=== PATIENT | female | born 1995 | race Caucasian/White ===

== ENCOUNTER 2018-08-07 05:48 | Inpatient (IN) | payer MEDICAID ==
[2018-08-07] MEDS ORDERED: SUBLIMAZE IV PRN (07:14)
[2018-08-07] MEDS ORDERED: XYLOCAINE 2% INFILTRATI ONE (07:14)
[2018-08-07] MEDS ORDERED: BRETHINE SUB-Q PRN (07:14)
--- NOTE | 2018-08-07 07:25 | History and Physical Report ---
History of Present Illness Date of examination: 08/07/18 Date of admission: 08/07/18 05:58 Chief complaint: Leaking water History of present illness: 23 year old presents to L&D complaining of leaking water from vagina since 05:30 this morning. Patient denies vaginal bleeding. Patient reports contractions. Patient reports good movement. Patient received care at [facility]. records are available. LMP 10/26/17. EDC 08/02/18 (based on LMP and confirmed by 8 week US). has been uncomplicated. labs are as follows: O+, antibody screen negative, rubella immune, RPR nonreactive, HIV negative, hepatitis B surface antigen negative, chlamydia negative, gonorrhea negative, quad screen negative, diabetes screen 110, GBS negative, pap smear normal. 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 denies: smoking, alcohol abuse, IV drug use - Obstetrical History Expected Date of Delivery: 08/02/18 Actual Gestation: 40 Week(s) 5 Day(s) : 1 Para: 0 Hx # Term Pregnancies: 1 Number of Pregnancies: 0 Spontaneous Abortions: 0 Induced : 0 Number of Living Children: 0 Medications and Allergies Active Meds: Active Medications Ephedrine Sulfate (Ephedrine Sulfate) 10 mg IV Q2M PRN PRN Reason: Hypotension Fentanyl (Sublimaze) 100 mcg IV Q2H PRN PRN Reason: Labor Pain Lactated Ringer's (Lactated Ringers) 1,000 mls @ 125 mls/hr IV DIRECT VIC Oxytocin/Sodium Chloride (Pitocin/Ns 20 Unit/1000ml Drip) 20 units in 1,000 mls @ 125 mls/hr IV DIRECT VIC Oxytocin/Sodium Chloride (Pitocin/Ns 30 Unit/500ml) 30 units in 500 mls @ 0 mls/hr IV TITR VIC; Protocol Lidocaine (Xylocaine 2%) 20 ml INFILTRATI ONCE ONE Stop: 08/07/18 07:15 Terbutaline Sulfate (Brethine) 0.25 mg SUB-Q ONCE PRN PRN Reason: Hyperstimulation/Hypertonicity Review of Systems All systems: negative (contractions and leaking of water from vagina) - Physical Exam Abdomen: Positive: normal appearance, soft. Negative: distention, tenderness, guarding, rigidity Genitourinary (Female): Positive: normal external genitalia, normal perenium. Negative: perineal/vulvar lesions Vagina: Positive: other (meconium stained amniotic fluid noted at introitus) Uterus: Positive: enlarged (size=dates) Extremities: Positive: normal. Negative: tenderness, edema - Obstetrical FHR: category 1 Uterine Contraction Monitor Mode: External Cervical Dilatation: 4 Cervical Effacement Percentage: 90 station: -1 Uterine Contraction Pattern: Irregular Uterine Contraction Intensity: Mild Results All other labs normal. Assessment and Plan A: at 40 weeks, 5 days gestation. Spontaneous rupture of membranes, meconium stained fluid. Labor. GBS negative. P: Admit. Continuous EFM. Pitocin augmentation of labor. Discussed with patient risks and benefits of Pitocin augmentation of labor. Patient consented to Pitocin augmentation of labor.
[2018-08-07] MEDS ORDERED: PITOCin/NS 30 UNIT/500ML 30 UNITS/500 ML BAG IV SCH (08:00)
[2018-08-07] MEDS ORDERED: PITOCin/NS 20 UNIT/1000ML DRIP 20 UNITS/1,000 ML BAG IV SCH ×3 (08:00→21:00)
[2018-08-07] MEDS: LACTATED RINGERS 1,000 ML IV SCH ×2 (08:18→17:30)
[2018-08-07 10:23] LABS: Hematocrit 38.8 % (30.3-42.9); Hemoglobin 13.2 gm/dl (10.1-14.3); Mean Corpuscular HGB Conc 34 % (30-34); Mean Corpuscular Volume 87 fl (79-97); Platelet Count 178 K/mm3 (140-440); Red Blood Count 4.44 M/mm3 (3.65-5.03); Red Cell Distribution Width 14.1 % (13.2-15.2)
[2018-08-07 10:39] LABS: Alanine Aminotransferase 11 units/L (7-56); Albumin 3.5 g/dL (3.9-5); BUN/Creatinine Ratio 23; Blood Urea Nitrogen 14 mg/dL (7-17); Calcium 8.9 mg/dL (8.4-10.2); Hemolysis Index 2; Uric Acid 7.3 mg/dL (3.5-7.6)
--- NOTE | 2018-08-07 10:49 | Event Note ---
Date: 08/07/18 Patient requests epidural. SVE /0.
[2018-08-07] MEDS ORDERED: NARCAN 2 MG/2 ML IV PRN (11:53)
--- NOTE | 2018-08-07 11:56 | Anesthesia Consultation ---
Anesthesia Consult and Med Hx Date of service: 08/07/18 - Airway Anesthetic Teeth Evaluation: Good ROM Head & Neck: Adequate Mental/Hyoid Distance: Adequate Mallampati Class: Class II Intubation Access Assessment: Probably Good - Pulmonary Exam CTA: Yes - Cardiac Exam Cardiac Exam: RRR - Pre-Operative Health Status ASA Pre-Surgery Classification: ASA2 Proposed Anesthetic Plan: Epidural - Pulmonary Hx Smoking: No Hx Asthma: No Hx Respiratory Symptoms: No SOB: No COPD: No Home Oxygen Therapy: No Hx Pneumonia: No Hx Sleep Apnea: No - Cardiovascular System Hx Hypertension: No Hx Coronary Artery Disease: No Hx Heart Attack/AMI: No Hx Angina: No Hx Percutaneous Transluminal Coronary Angioplasty (PTCA): No Hx Cardia Arrhythmia: No Hx Pacemaker: No Hx Internal Defibrillator: No Hx Valvular Heart Disease: No Hx Heart Murmur: No Hx Peripheral Vascular Disease: No - Central Nervous System Hx Neuromuscular Disorder: No Hx Seizures: No CVA: No Hx Back Pain: No Hx Psychiatric Problems: No - Gastrointestinal Hx Ulcer: No Hx Gastroesophageal Reflux Disease: No - Endocrine Hx Renal Disease: No Hx End Stage Renal Disease: No Hx Cirrhosis: No Hx Liver Disease: No Hx Insulin Dependent Diabetes: No Hx Non-Insulin Dependent Diabetes: No Hx Thyroid Disease: No Hx Hypothyroidism: No Hx Hyperthyroidism: No - Hematic Hx Anemia: No Hx Sickle Cell Disease: No - Other Systems Hx Alcohol Use: No Hx Substance Use: No Hx Cancer: No Hx Obesity: No
[2018-08-07] MEDS ORDERED: fentaNYL-BUPIV 2 MCG/ML-0.125% 200 MCG/100 ML BAG EPIDURAL SCH (12:00)
[2018-08-07] MEDS ORDERED: AMPICILLIN/NS 2 GM/100 ML 2 GM/100 ML BAG IV ONE (18:00)
--- NOTE | 2018-08-07 18:10 | Event Note ---
Date: 08/07/18 SVE 6-7/100/-1. Category 1 heart rate tracing. Patient is receiving Pitocin for augmentation of labor. Patient has epidural and is comfortable. Ampicillin has been started for SROM greater than 12 hours ago.
[2018-08-07] MEDS ORDERED: TYLENOL PO ONE (19:00)
--- NOTE | 2018-08-07 19:04 | Event Note ---
Date: 08/07/18 Patient reports urge to push. Prolonged late heart rate deceleration noted; heart rate baseline now 170s and 180s. Temp. 99.0. Patient is already receiving Ampicillin. Gentamicin ordered also. SVE 7/100/-2. Patient positioned in lateral position. IV fluid bolus given. Oxygen per face mask at 10 LPM. Tylenol given PO. Called Dr. Pearson and informed him of all the above. Dr. Pearson states he will come and perform section. Discussed this plan with patient and informed her of need to expedite delivery due to tachycardia. Patient and family state they are in agreement with delivering by section.
[2018-08-07] MEDS ORDERED: BICITRA ONE (19:11)
[2018-08-07] MEDS ORDERED: PEPCID IV ONE ×2 (19:11→20:00)
[2018-08-07] MEDS ORDERED: REGLAN ONE (19:11)
[2018-08-07] MEDS ORDERED: GENTAMICIN 100 MG in NACL 0.9% 100 ML IV SCH (19:15)
[2018-08-07] MEDS ORDERED: NARCAN 0.4 MG/1 ML IV PRN ×2 (19:23→20:47)
[2018-08-07] MEDS ORDERED: PHENERGAN PO PRN (19:23)
[2018-08-07] MEDS ORDERED: ZOFRAN IV PRN (19:23)
[2018-08-07] MEDS ORDERED: PHENERGAN PR PRN (19:23)
[2018-08-07] MEDS ORDERED: DILAUDID IV PRN (19:23)
[2018-08-07] MEDS ORDERED: MARCAINE 0.5% INFILTRATI ONE (19:30)
[2018-08-07 19:41] LABS: Basophils % (Auto) 0.1 % (0.0-1.8); Hematocrit 37.4 % (30.3-42.9); Hemoglobin 12.7 gm/dl (10.1-14.3); Lymphocytes # (Auto) 1.7 K/mm3 (1.2-5.4); Lymphocytes % (Auto) 12.7 % (13.4-35.0); Mean Corpuscular HGB Conc 34 % (30-34); Mean Corpuscular Volume 88 fl (79-97); Monocytes # (Auto) 1.1 K/mm3 (0.0-0.8); Monocytes % (Auto) 8.4 % (0.0-7.3); Platelet Count 173 K/mm3 (140-440); Red Blood Count 4.24 M/mm3 (3.65-5.03); Red Cell Distribution Width 14.5 % (13.2-15.2)
[2018-08-07] MEDS ORDERED: GENTAMICIN/NS 100 MG/100 ML 100 MG/100 ML BAG IV SCH (20:00)
[2018-08-07] MEDS ORDERED: ANCEF/STERILE WATER 2 GM/20 ML 2 GM/20 ML SYRINGE IV NR (20:00)
[2018-08-07] MEDS ORDERED: SODIUM CHLORIDE FLUSH SYRINGE 10 ML IV NR ×2 (20:00→21:00)
[2018-08-07] MEDS ORDERED: LACTATED RINGERS 1,000 ML IV SCH (20:00)
[2018-08-07] MEDS ORDERED: BICITRA PO ONE (20:00)
[2018-08-07] MEDS ORDERED: REGLAN IV ONE (20:00)
[2018-08-07] MEDS ORDERED: TORADOL ONE (20:10)
[2018-08-07] MEDS ORDERED: VERSED ONE (20:35)
--- NOTE | 2018-08-07 20:40 | Operative Report ---
Operative Report Operative Report: Date of procedure: 08/07/2018 Pre-operative diagnosis: 1. Intrauterine at 40-5/7 weeks in labor 2 . Meconium fluid 3. Non-reassuring surveillance Post-operative diagnosis: Same Procedure name(s): Primary low transverse section Surgeon: Matt Pearson MD Human Resources Specialist: None Anesthesia: Spinal anesthesia by Dr. Navas EBL: 600 mls Findings: A 4563 g male infant Apgars 9 at 1 minutes 9 at 5 minutes. Nuchal cord 1. 3+ meconium fluid. Normal uterus. Normal tubes and ovaries bilaterally. Procedure: After the patient was prepped and draped in usual sterile fashion, and after satisfactory level of epidural anesthesia was obtained, the skin knife was used to make a transverse skin incision. The incision was excised down to layer of the fascia, which was nicked in the midline and extended laterally using the Bovie cautery. The rectus muscles were dissected off the rectus fascia both superiorly and inferiorly. The rectus bellies in the midline, and the peritoneum was entered under direct visualization. The peritoneal incision was extended superiorly and inferiorly. A bladder flap was created and the bladder blade was then placed. The uterus was scored in a curvilinear linear fashion, entered in the midline revealing 3+ meconium amniotic fluid. The 's head was delivered onto the surgical field, nuchal cord 1 easily reduced and the oropharynx and nasopharynx were bulb suctioned. The rest of the 's body was delivered, cord was doubly clamped and cut and the infant was handed to the waiting respiratory team. Cord blood was then obtained. The placenta was manually removed from the uterus, and the uterus removed from its normal anatomical position. After gentle uterine lavage, the incision was inspected and found to be without extensions. It was then closed in 2 layers using 0 Vicryl suture in a running interlocking fashion, the second layer imbricating the first. After good hemostasis was achieved, copious amounts or irrigation was performed, and the gutters were suctioned free of blood and blood clots. Tisseel sealant was sprayed across the uterine incision. The uterus was then returned to its normal anatomical position, and after excellent hemostasis assured, the peritoneum was re-approximated using 3-0 Vicry l suture in a running interlocking fashion, and then the rectus muscles were re- approximated using 3-0 Vicryl suture in a [id number] configuration. The fascia was then re-approximated using 0 Vicryl suture in running interlocking fashion. The subcutaneous layer was made hemostatic using Bovie cautery, the Tisseel sealant was sprayed across the fascial incision and the skin edges re-approximated using 4-0 Vicryl suture in a sub-cuticular fashion. Patient tolerated the procedure well was transported to recovery in stable condition.
[2018-08-07] MEDS ORDERED: METHERGINE IM ONE ×2 (20:46→20:47)
[2018-08-07] MEDS ORDERED: TUCKS PAD TP PRN (20:47)
[2018-08-07] MEDS ORDERED: TYLENOL PO PRN (20:47)
[2018-08-07] MEDS ORDERED: LANSINOH TP PRN (20:47)
[2018-08-07] MEDS ORDERED: TORADOL IV PRN (20:47)
[2018-08-07] MEDS ORDERED: D5LR 1,000 ML IV SCH (21:00)
--- NOTE | 2018-08-07 21:06 | Post Anesthesia Evaluation ---
- Post Anesthesia Evaluation Patient Participated: Yes Airway Patent: Yes Stable Respiratory Function: Yes Nausea/Vomiting: No Temp > 96.8F: Yes Pain Manageable: Yes Adequeate Hydration: Yes Anesthesia Complications: No Block Receding Appropriately: Yes Patient on Ventilator: No
[2018-08-07] MEDS: DILAUDID IV PRN ×2 (21:48→22:54)
[2018-08-07] MEDS ORDERED: AMPICILLIN/NS 1 GM/50 ML 1 GM/50 ML BAG IV SCH (22:00)
[2018-08-08] MEDS: ANCEF/NS 1 GM/50 ML 1 GM/50 ML BAG IV SCH ×2 (01:49→10:08)
[2018-08-08] MEDS: PERCOCET 5/325 PO PRN ×3 (10:07→21:51)
[2018-08-08] MEDS: PRENATAL VITAMIN PO SCH (10:07)
[2018-08-08] MEDS: FEOSOL PO SCH (10:07)
[2018-08-08] MEDS: IBUPROFEN PO PRN (10:07)
[2018-08-08] MEDS: METHERGINE PO SCH ×2 (10:08→18:10)
[2018-08-08 10:44] LABS: Hematocrit 28.8 % (30.3-42.9); Hemoglobin 9.8 gm/dl (10.1-14.3)
--- NOTE | 2018-08-08 10:52 | Progress Note ---
Assessment and Plan A: /postop day 1 S/P primary low transverse section. P: Encouraged patient to ambulate today. Subjective - Subjective Date of service: 08/08/18 Principal diagnosis: /postop day 1 S/P primary low transverse section Interval history: /postop day 1 S/P primary low transverse section. Patient is doing well. Voiding, passing gas, tolerating regular diet without nausea or vomiting. Encouraged patient to ambulate. Patient denies headache, chest pain, cough, shortness of breath, abdominal pain, leg pain, or heavy bleeding. Patient reports: appetite normal, voiding normally, pain well controlled, flatus, ambulating normally, no dizzy ambulation, no nauseated : doing well Objective - Vital Signs Latest vital signs: Vital Signs Temp Pulse Resp BP Pulse Ox 08/08/18 10:07 18 08/08/18 07:43 99.1 F 108 H 20 133/81 95 08/08/18 05:19 98.4 F 18 08/08/18 05:03 105 H 135/67 95 08/07/18 23:45 98.0 F 92 H 18 146/75 96 08/07/18 22:45 68 20 133/69 08/07/18 22:30 69 22 135/66 08/07/18 22:00 69 22 129/67 08/07/18 21:30 70 20 138/78 08/07/18 21:15 69 18 133/75 08/07/18 21:10 66 17 129/74 08/07/18 21:05 59 L 19 127/65 08/07/18 21:00 98 F 62 18 126/68 08/07/18 19:30 99.2 F 105 H 20 145/68 97 08/07/18 19:24 112 H 97 08/07/18 19:23 111 H 154/88 08/07/18 19:19 115 H 100 08/07/18 19:14 110 H 99 08/07/18 19:09 108 H 98 08/07/18 19:08 100 H 160/94 08/07/18 19:04 101 H 97 08/07/18 18:59 99 H 97 08/07/18 18:55 97.8 F 08/07/18 18:54 103 H 97 08/07/18 18:53 93 H 146/95 08/07/18 18:49 111 H 97 08/07/18 18:44 113 H 94 08/07/18 18:39 104 H 138/84 99 08/07/18 18:34 113 H 98 08/07/18 18:29 105 H 97 08/07/18 18:25 127 H 131/69 08/07/18 18:24 120 H 99 08/07/18 18:20 99.0 F 08/07/18 18:19 104 H 98 08/07/18 18:14 99 H 98 08/07/18 18:09 83 137/90 94 08/07/18 18:04 98 H 96 08/07/18 17:59 97 H 97 08/07/18 17:54 94 H 117/60 97 08/07/18 17:49 91 H 96 08/07/18 17:44 93 H 97 08/07/18 17:39 95 H 124/65 97 08/07/18 17:34 101 H 96 08/07/18 17:29 95 H 97 08/07/18 17:24 97 H 137/82 98 08/07/18 17:19 92 H 99 08/07/18 17:14 96 H 99 08/07/18 17:10 107 H 131/70 08/07/18 17:09 90 98 08/07/18 17:04 99 H 98 08/07/18 16:59 91 H 97 08/07/18 16:54 98 H 123/71 97 08/07/18 16:49 108 H 96 08/07/18 16:44 109 H 97 08/07/18 16:39 103 H 132/60 97 08/07/18 16:34 113 H 94 08/07/18 16:29 94 H 94 08/07/18 16:25 88 127/61 08/07/18 16:24 91 H 93 08/07/18 16:19 92 H 94 08/07/18 16:14 94 H 94 08/07/18 16:10 88 127/65 08/07/18 16:09 89 93 08/07/18 16:04 106 H 94 08/07/18 15:59 103 H 95 08/07/18 15:54 92 H 127/66 93 08/07/18 15:49 88 94 08/07/18 15:44 99 H 95 08/07/18 15:39 91 H 132/72 94 08/07/18 15:34 90 95 08/07/18 15:29 96 H 94 08/07/18 15:24 109 H 95 08/07/18 15:23 93 H 130/70 08/07/18 15:19 98 H 94 08/07/18 15:14 103 H 95 08/07/18 15:09 110 H 127/58 94 08/07/18 15:04 99 H 94 08/07/18 14:59 99 H 93 08/07/18 14:54 107 H 95 08/07/18 14:53 98 H 119/59 08/07/18 14:49 91 H 93 08/07/18 14:44 103 H 93 08/07/18 14:39 101 H 93 08/07/18 14:38 103 H 125/55 08/07/18 14:34 98 H 93 08/07/18 14:29 100 H 93 08/07/18 14:24 95 H 93 08/07/18 14:23 102 H 122/58 08/07/18 14:19 96 H 92 08/07/18 14:14 104 H 92 08/07/18 14:09 100 H 118/57 92 08/07/18 14:04 105 H 92 08/07/18 13:59 97 H 91 08/07/18 13:54 88 91 08/07/18 13:53 88 120/59 08/07/18 13:49 83 92 08/07/18 13:44 94 H 92 08/07/18 13:40 95 H 118/57 08/07/18 13:39 87 91 08/07/18 13:34 98 H 93 08/07/18 13:29 94 H 93 08/07/18 13:24 99 H 118/57 93 08/07/18 13:19 94 H 93 08/07/18 13:14 96 H 95 08/07/18 13:09 92 H 93 08/07/18 13:08 95 H 122/60 08/07/18 13:04 99 H 93 08/07/18 12:59 86 92 08/07/18 12:54 83 92 08/07/18 12:53 83 118/56 08/07/18 12:49 85 93 08/07/18 12:44 86 94 08/07/18 12:42 85 114/57 08/07/18 12:39 95 H 93 08/07/18 12:38 93 H 113/56 08/07/18 12:34 86 94 08/07/18 12:29 95 H 95 08/07/18 12:26 103 H 112/62 08/07/18 12:24 89 95 08/07/18 12:23 96 H 115/62 08/07/18 12:19 90 95 08/07/18 12:14 92 H 93 08/07/18 12:09 89 96 08/07/18 12:08 82 125/73 08/07/18 12:04 88 95 08/07/18 11:59 88 91 08/07/18 11:54 102 H 135/71 96 Intake and Output 08/07/18 08/08/18 08/08/18 23:59 07:59 15:59 Intake Total 1010.967 290 120 Output Total 300 300 600 Balance 710.967 -10 -480 Intake: IV 1010.967 50 ANCEF/NS 1 GM/50 ML 1 gm 50 In 50 ml @ 100 mls/hr IV Q8H VIC Rx#:[id number] Lactated Ringers 1,000 ml 1000 @ 125 mls/hr IV DIRECT VIC Rx#:[id number] PITOCin/NS 30 UNIT/500ML 10.967 30 units In 500 ml @ Per Protocol IV TITR VIC Rx#: [id number] Oral 240 120 Output: Urine 300 300 600 Indwelling Catheter 300 600 Uretheral (Cunningham) 300 Other: Total, Intake Amount 240 120 Total, Output Amount 300 600 Voiding Method Indwelling Catheter Estimated Blood Loss 1,300 - Exam Cardiovascular: Present: Regular rate, Normal S1, Normal S2 Lungs: Present: Clear to auscultation Abdomen: Present: normal appearance, soft, normal bowel sounds. Absent: distention, tenderness, guarding, rigidity Uterus: Present: normal, firm, fundal height below umbilicus. Absent: bogginess, tenderness Extremities: Present: normal. Absent: tenderness, edema Incision: Present: normal, dry, intact, dressed - Labs Labs: Abnormal lab results 08/07/18 08/08/18 Range/Units 19:10 08:52 WBC 13.5 H (4.5-11.0) K/mm3 Hgb 9.8 L (10.1-14.3) gm/dl Lymph % (Auto) 12.7 L (13.4-35.0) % Fannin % (Auto) 8.4 H (0.0-7.3) % Fannin # 1.1 H (0.0-0.8) K/mm3 Seg Neutrophils % 78.8 H (40.0-70.0) % Seg Neutrophils # 10.6 H (1.8-7.7) K/mm3
[2018-08-08 15:24] LABS: Bacteria,Urine 1+ /HPF (Negative); Bilirubin,Urine NEG (Negative); Blood,Urine MOD (Negative); Color,Urine Yellow (Yellow); Mucus,Urine FEW /HPF; Protein,Urine <15 mg/dL mg/dL (Negative); Urobilinogen,Urine < 2.0 mg/dL (<2.0)
[2018-08-08] MEDS ORDERED: M-M-R II VACCINE SUB-Q ONE (20:49)
[2018-08-08] MEDS ORDERED: BOOSTRIX IM ONE (20:49)
[2018-08-09] MEDS: METHERGINE PO SCH ×3 (02:18→23:58)
[2018-08-09] MEDS: IBUPROFEN PO PRN ×3 (03:56→23:59)
[2018-08-09] MEDS: PERCOCET 5/325 PO PRN (03:57)
[2018-08-09] MEDS ORDERED: BOOSTRIX IM ONE (06:00)
[2018-08-09] MEDS: MYLICON PO PRN ×2 (07:52→19:57)
[2018-08-09] MEDS: NORCO 5/325 PO PRN (07:52)
--- NOTE | 2018-08-09 09:03 | Progress Note ---
Assessment and Plan - Patient Problems (1) S/P primary low transverse Current Visit: Yes Status: Acute Plan to address problem: POD 2 - stable Continue routine postop orders Ambulation encouraged, as tolerated Discharge to home 08/10/18 Follow up at [facility] in 1 week for incision check (2) Anemia due to blood loss, acute Current Visit: Yes Status: Acute Plan to address problem: Asymptomatic Continue iron therapy Subjective - Subjective Date of service: 08/09/18 Principal diagnosis: POD #2; s/p Primary LTCS Interval history: see H&P, Event Notes, Operative Report and PP/FOURTH HAND Progress Note Patient reports: appetite normal, voiding normally, pain well controlled, flatus, ambulating normally, no dizzy ambulation, no bowel movement : doing well, nursing well Objective - Vital Signs Latest vital signs: Vital Signs Temp Pulse Resp BP BP Pulse Ox 08/09/18 07:38 97.9 F 75 18 118/71 95 08/09/18 01:30 97.7 F 103 H 18 139/63 97 08/08/18 20:25 98.5 F 100 H 18 132/77 96 08/08/18 15:20 98.6 F 89 20 135/81 94 08/08/18 11:36 98.7 F 91 H 20 133/76 93 08/08/18 10:07 18 Intake and Output 08/08/18 08/09/18 08/09/18 23:59 07:59 15:59 Intake Total 240 120 Output Total 800 800 Balance -560 -680 Intake: Intake, Free Water 240 120 Output: Urine 800 800 Void 800 800 Other: Total, Output Amount 800 800 - Exam Cardiovascular: Present: Regular rate Lungs: Present: Clear to auscultation, Normal air movement Abdomen: Present: normal appearance, soft Vulva: both: normal Uterus: Present: normal, firm, fundal height below umbilicus Extremities: Present: normal Incision: Present: normal, dry, intact, other (steri strips in place) Comments: scant lochia - Labs Labs: Abnormal lab results 08/08/18 Range/Units 08:52 Hgb 9.8 L (10.1-14.3) gm/dl Hct 28.8 L D (30.3-42.9) %
--- NOTE | 2018-08-09 09:14 | Discharge Summary ---
Providers - Providers Date of Admission: 08/07/18 05:58 Date of discharge: 08/10/18 Attending physician: MICAH DE LA TORRE MD Primary care physician: MICAH DE LA TORRE MD Hospitalization Reason for admission: active labor, IUP at term Delivery: Procedure: primary low transverse Episiotomy: none Laceration: none Incision: normal, dry, intact, other (steri strips in place) Other procedures: none complications: none Discharge diagnosis: IUP at term delivered [place] baby: male Hospital course: Uncomplicated Condition at discharge: Stable Disposition: DC-01 TO HOME OR SELFCARE - Discharge Diagnoses (1) S/P primary low transverse Status: Acute (2) Anemia due to blood loss, acute Status: Acute Comment: Asymptomatic Continue iron therapy Plan - Discharge Medications Prescriptions: Ferrous Sulfate [Feosol 325 MG tab] 325 mg PO BID #60 tablet Ibuprofen [Motrin] 800 mg PO Q8HR PRN #30 tablet PRN Reason: Pain, Moderate (4-6) HYDROcodone/APAP 5-325 [[place] 5/325] 1 each PO Q6HR PRN #30 tablet PRN Reason: Pain Pnv No.95/Ferrous Fum/Folic AC [Prenavite Tablet] 1 each PO DAILY #30 tablet - Provider Discharge Summary Activity: routine, no sex for 6 weeks, no heavy lifting 4 weeks, no strenuous exercise Diet: routine Instructions: routine Additional instructions: [] Smoking cessation referral if applicable(refer to patient education folder for contact #) [] Refer to [facility] Booklet Call your doctor immediately for: * Fever > 100.5 * Heavy vaginal bleeding ( >1 pad per hour) * Severe persistent headache * Shortness of breath * Reddened, hot, painful area to leg or breast * Drainage or odor from incision. * Keep incision clean and dry at all times and follow doctor's instructions regarding bathing/showering - Follow up plan Follow up: MICAH DE LA TORRE MD [Primary Care Provider] - 7 Days (Follow up at [facility] in 1 week for incision check) Forms: [facility] Discharge Summary
[2018-08-09] MEDS: FEOSOL PO SCH (09:48)
[2018-08-09] MEDS: PRENATAL VITAMIN PO SCH (09:48)
[2018-08-09] MEDS ORDERED: AFLURIA QUAD 2018-2019 SYRINGE IM ONE (12:00)
[2018-08-10] MEDS: METHERGINE PO SCH (06:00)
[2018-08-10] MEDS: IBUPROFEN PO PRN ×2 (06:02→11:33)
[2018-08-10] MEDS ORDERED: AFLURIA QUAD 2018-2019 SYRINGE IM ONE (10:30)
[2018-08-10] MEDS: PRENATAL VITAMIN PO SCH (10:34)
[2018-08-10] MEDS: FEOSOL PO SCH (10:34)
[2018-08-10] MEDS: NORCO 5/325 PO PRN (11:33)
[2018-08-10 12:34] VITALS: BP 140/67
== END 2018-08-10 12:05 | disposition home or self-care (01) | DRG 787 ==
LOC: TRG 05:48 → LD 05:58 → OB 23:17
PROVIDERS: ADMIT Obstetrics & Gynecology; ATTEND Obstetrics & Gynecology
PROC: 10D00Z1 Extraction of Products of Conception, Low, Open Approach (ICD-10-PCS; principal; 2018-08-07)
PROC: 3E0234Z Introduction of Serum, Toxoid and Vaccine into Muscle, Percutaneous Approach (ICD-10-PCS; 2018-08-08)
DX: O77.0 Labor and delivery complicated by meconium in amniotic fluid (principal); D62 Acute posthemorrhagic anemia; Z3A.40 40 weeks gestation of pregnancy; Z37.0 Single live birth; Z23 Encounter for immunization; Z83.3 Family history of diabetes mellitus; Z82.49 Family history of ischemic heart disease and other diseases of the circulatory system; O76 Abnormality in fetal heart rate and rhythm complicating labor and delivery; O90.81 Anemia of the puerperium
CPT/HCPCS: 36415; 80053; 81001; 83615; 84550; 85014; 85018; 85025; 85027; 86592; 86850; 86900; 86901; 88307; 90471; 90686; 90715; G0378; C9250; J0290; J0690; J1170; J1580; J1885; J2210; J2250; J2590; J2765; J3010; J7120; J7121